=== PATIENT | male | born 1960 | race Caucasian/White ===

== ENCOUNTER 2020-05-11 03:28 | Emergency (ER) | payer OTHER, SELFPAY ==
[2020-05-11 03:44] VITALS: BP 162/92; PULSE 71; RESP 16; TEMP 36.6; O2SAT 97
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
[2020-05-11 03:59] VITALS: BP 142/103; PULSE 83; RESP 18; O2SAT 96
[2020-05-11 04:07] VITALS: BP 152/81; PULSE 73; O2SAT 97
[2020-05-11 04:16] VITALS: BP 158/91; PULSE 73; O2SAT 97
[2020-05-11 04:42] VITALS: BP 148/82; PULSE 85; RESP 20; O2SAT 100
== END 2020-05-11 04:46 | disposition home or self-care (01) ==
PROVIDERS: Emergency Provider Emergency Medicine
DX: T14.8XXA Other injury of unspecified body region, initial encounter (principal); V89.2XXA Person injured in unspecified motor-vehicle accident, traffic, initial encounter
CPT/HCPCS: 99282